=== PATIENT | female | born 1950 | race Caucasian/White ===

== ENCOUNTER → 2017-12-30 | Outpatient (CLI) | payer BC, MEDICARE ==
--- NOTE | 2017-12-30 15:39 | CTL ---
EXAMINATION TYPE: CT Low Dose Lung DATE OF EXAM ORDERED: 12/30/2017 HISTORY: Personal history of tobacco abuse. Lung cancer screening CT DLP: 1.[address] CTDI: 61.9 mGy Automated exposure control for dose reduction was used. SCREENING VISIT: Initial COMPARISON: None TECHNIQUE: Low dose computed tomography scan was performed through the chest at 1 mm thick sections a nd reconstructed images in the coronal plane at [address] DIAGNOSTIC QUALITY: Satisfactory FINDINGS: LUNG NODULES: There is an elongated triangular shaped flat pulmonary nodule that demonstrates irregular morphology on coronal imaging (series 10 image 23) and is also seen on axial series 4 image 100 and sagittal ser ies 8 image 58. This is solid in nature and measures 7 mm. There is a 4 mm left upper lobe pulmonary nodule seen peripherally on series 4 image 50 that is subso lid in nature. LUNGS: COPD: Severity: Mild Fibrosis: Severity: None Lymph nodes: Nonenlarged RIGHT PLEURAL SPACE: Effusion: None Calcification: None Thickening: None Pneumothorax: None LEFT PLEURAL SPACE: Effusion: None Calcification: None Thickening: None Pneumothorax: None HEART: Heart Size: Ascending thoracic aorta is minimally dilated measuring 4.0-4.1 cm. Heart is within mariia l limits of size. Coronary calcification: Moderate Pericardial effusion: None OTHER FINDINGS: Upper abdomen: Grossly unremarkable evaluation of the unenhanced portions of the abdominal viscera al though limited. Bony thorax: Multilevel moderate degenerative change of the thoracic spine is seen. There is a very m ild dextroscoliotic curvature of the thoracic spine that could be positional in nature. Supraclavicular region: No discrete adenopathy IMPRESSION: Findings corresponding to LUNG RADS 3-probably benign [id number] follow-up is arroyo ggested. There is an elongated 7 mm solid pulmonary nodule in the right upper lobe and additional sub centimeter left upper lobe pulmonary nodule. If there is interval growth at that time PET/CT would be recommended. FOLLOW UP CT CHEST RECOMMENDATION: Six-month low dose CT is recommended to evaluate stability of the bilateral pulmonary nodules measuring up to [address] LUNG RAD: Lung-Rad 3 Probably Benign
--- NOTE | 2018-01-07 10:55 | P.ARTDOP ---
Arterial Doppler LOWER EXTREMITY ARTERIAL DOPPLER: DATE OF SERVICE: 12/30/2017 Reason for study: Bilateral leg pain. Doppler waveforms: Multiphasic bilaterally throughout. Pulse volume recording: []. Pressure gradients: None. Ankle-brachial indices: Greater than 1 bilaterally. Toe pressures: [] on the right, [] on the left Impression: Normal study..
== END | disposition home or self-care (01) ==
LOC: RADUSWWP 14:15
PROVIDERS: ATTEND Family Medicine
DX: R91.1 Solitary pulmonary nodule (principal); F17.200 Nicotine dependence, unspecified, uncomplicated
CPT/HCPCS: 93922; G0297

== ENCOUNTER → 2018-03-25 | Outpatient (CLI) | payer MEDICARE ==
--- NOTE | 2018-03-25 14:36 | US ---
EXAMINATION TYPE: US venous doppler duplex LE RT DATE OF EXAM: 03/25/2018 2:19 PM COMPARISON: NONE CLINICAL HISTORY: Rt Lower leg I83.009 varicose veins. SIDE PERFORMED: Right TECHNIQUE: The lower extremity deep venous system is examined utilizing real time linear array sonog mariajose with graded compression, doppler sonography and color-flow sonography. VESSELS IMAGED: External Iliac Vein (EIV) Common Femoral Vein Deep Femoral Vein Greater Saphenous Vein * Femoral Vein Popliteal Vein Small Saphenous Vein * Proximal Calf Veins (* superficial vessels) Grayscale, color doppler, spectral doppler imaging performed of the deep veins of the right lower ext remity. There is normal flow, compressibility, vascular waveforms. Right Leg: Negative for DVT IMPRESSION: No sonographic evidence of deep venous thrombosis within the right lower extremity.
== END | disposition home or self-care (01) ==
LOC: RADUSWWP 13:54
PROVIDERS: ATTEND Family Medicine
DX: I83.009 Varicose veins of unspecified lower extremity with ulcer of unspecified site (principal)

== ENCOUNTER → 2018-08-06 | Outpatient (CLI) | payer MEDICARE ==
--- NOTE | 2018-08-07 06:07 | CT ---
EXAMINATION TYPE: CT chest wo con DATE OF EXAM: 08/06/2018 COMPARISON: Low-dose CT 12/30/2017 HISTORY: 68-year-old female lung nodules. Solitary lung nodule. TECHNIQUE: Contiguous axial scanning of the chest without IV contrast. Coronal and sagittal reconstru ctions performed. CT DLP: 167.7 mGycm Automated exposure control for dose reduction was used. FINDINGS: The heart is normal size without pericardial effusion. Coronary vessel calcifications are present. Ectatic upper ascending aorta at 3.6 cm. Mild atelectatic arch calcifications. Bovine configuration t o the aortic arch. Borderline ectatic mid and lower descending thoracic aorta measuring up to 2.6 cm. Mild emphysematous change in the upper lungs. -3 mm pulmonary nodule right upper lobe, axial image 15, unchanged. -8 x 3 x 7 mm elongated nodule lateral right midlung axial image 23 and coronal 38 is unchanged. -4 mm right middle lobe pulmonary nodule axial image 35 is unchanged. -Previously seen 3 mm left upper lobe pulmonary nodule is no longer demonstrated. No consolidation or pleural effusion. Visualized upper abdomen shows no gross anomaly. Bones: Accentuated midthoracic kyphosis with moderate degenerative disc disease particularly in the l ower thoracic spine. 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 Minimal superior endplate def ormity of T4 is unchanged. IMPRESSION: 1. AN 8 MM ELONGATED PULMONARY NODULE IN THE RIGHT MIDLUNG IS UNCHANGED FOR 7 MONTHS. AN ADDITIONAL O NE-YEAR FOLLOW-UP CT IS RECOMMENDED. ALTERNATIVELY, THE PATIENT CAN RETURN TO ANNUAL LOW-DOSE LUNG CA NCER SCREENING CT. 2. A COUPLE ADDITIONAL PULMONARY NODULES MEASURING UP TO 4 MM ARE ALSO UNCHANGED. ONE NODULE IS NO LO NGER SEEN. 3. COPD WITH MILD EMPHYSEMA.
== END ==
LOC: RADCTMAIN 16:07
PROVIDERS: ATTEND Family Medicine
DX: R91.1 Solitary pulmonary nodule (principal); J44.9 Chronic obstructive pulmonary disease, unspecified; J43.9 Emphysema, unspecified
CPT/HCPCS: 71250

== ENCOUNTER 2024-01-21 20:35 | Inpatient (IN) | payer MEDICARE ==
[~2024-01-21 20:35] MED LIST: HYDROmorphone 0.5 MG/0.5 ML SYRINGE ONE; HYDROmorphone 1 MG/ML 1 ML SYRINGE ONE; ONDANSETRON 4 MG/2 ML VIAL ONE; cefTRIAXone 2 GM VIAL ONE
[2024-01-21] MEDS ORDERED: HYDROmorphone 1 MG/ML 1 ML SYRINGE ONE (23:19)
[2024-01-22] MEDS ORDERED: cloNIDine HCL 0.1 MG TAB ONE (05:42)
[2024-01-22] MEDS ORDERED: PANTOPRAZOLE 40 MG TABLET PO ONE (05:42)
[2024-01-22] MEDS ORDERED: HYDROmorphone 0.5 MG/0.5 ML SYRINGE ONE ×4 (05:50→17:35)
[2024-01-22] MEDS ORDERED: LACTATED RINGERS 1,000 ML BAG ONE (07:00)
[2024-01-22] MEDS ORDERED: NEOSTIGMINE 1 MG/ML 10 ML VIAL ONE (07:08)
[2024-01-22] MEDS ORDERED: GLYCOPYRROLATE 0.2 MG/ML 2 ML VIAL ONE (07:08)
[2024-01-22] MEDS ORDERED: fentaNYL (PF) 50 MCG/ML 2 ML AMP ONE (07:08)
[2024-01-22] MEDS ORDERED: ROCURONIUM 10 MG/ML (5 ML VIAL) IV ONE (07:08)
[2024-01-22] MEDS ORDERED: PROPOFOL 10 MG/ML 20 ML VIAL IV ONE (07:08)
[2024-01-22] MEDS ORDERED: LIDOCAINE 1% INJ 10MG/ML (20 ML MDV) ONE (07:08)
[2024-01-22] MEDS ORDERED: SUCCINYLCHOLINE CHLORIDE 200 MG/10 ML VIAL IV ONE (07:08)
[2024-01-22] MEDS ORDERED: HEPARIN SODIUM,PORCINE 5,000 UNIT/ML 1 ML VIAL ONE ×3 (09:33→21:07)
[2024-01-22] MEDS ORDERED: NICOTINE 21MG/24HR PATCH TRANSDERM ONE (09:33)
[2024-01-22] MEDS ORDERED: cefTRIAXone 2 GM VIAL ONE (09:33)
[2024-01-22] MEDS ORDERED: HYDROmorphone 1 MG/ML 1 ML SYRINGE ONE ×2 (20:32→23:35)
[2024-01-22] MEDS ORDERED: VANCOMYCIN 1,000 MG VIAL ONE (23:59)
[2024-01-22] MEDS ORDERED: SODIUM CHLORIDE 0.9% 50 ML BAG ONE (23:59)
[2024-01-22] MEDS ORDERED: VANCOMYCIN 500 MG VIAL ONE (23:59)
[2024-01-22] MEDS ORDERED: SODIUM CHLORIDE 0.9% 250 ML BAG ONE (23:59)
[2024-01-23] MEDS ORDERED: HYDROmorphone 1 MG/ML 1 ML SYRINGE ONE ×3 (04:25→15:31)
[2024-01-23] MEDS ORDERED: HEPARIN SODIUM,PORCINE 5,000 UNIT/ML 1 ML VIAL ONE ×3 (05:30→22:27)
[2024-01-23] MEDS ORDERED: cefTRIAXone 2 GM VIAL ONE (08:03)
[2024-01-23] MEDS ORDERED: HYDROmorphone 0.5 MG/0.5 ML SYRINGE ONE (22:26)
[2024-01-23] MEDS ORDERED: SODIUM CHLORIDE 0.9% 250 ML BAG ONE (23:59)
[2024-01-23] MEDS ORDERED: VANCOMYCIN 1,000 MG VIAL ONE (23:59)
[2024-01-23] MEDS ORDERED: SODIUM CHLORIDE 0.9% 50 ML BAG ONE (23:59)
[2024-01-23] MEDS ORDERED: VANCOMYCIN 500 MG VIAL ONE (23:59)
[2024-01-23] MEDS ORDERED: DEXTROSE 5%-0.45% NACL 1,000 ML BAG IV ONE (23:59)
[2024-01-24] MEDS ORDERED: HYDROmorphone 1 MG/ML 1 ML SYRINGE ONE (03:15)
[2024-01-24] MEDS ORDERED: HEPARIN SODIUM,PORCINE 5,000 UNIT/ML 1 ML VIAL ONE ×3 (06:52→22:38)
[2024-01-24] MEDS ORDERED: cefTRIAXone 2 GM VIAL ONE (09:09)
[2024-01-24] MEDS ORDERED: HYDROmorphone 0.5 MG/0.5 ML SYRINGE ONE ×2 (09:09→13:22)
[2024-01-24] MEDS ORDERED: cloNIDine HCL 0.1 MG TAB ONE (22:38)
[2024-01-24] MEDS ORDERED: POTASSIUM CHLORIDE 100 ML ONE (23:01)
[2024-01-24] MEDS ORDERED: VANCOMYCIN 1,000 MG VIAL ONE (23:59)
[2024-01-24] MEDS ORDERED: DEXTROSE 5%-0.45% NACL 1,000 ML BAG IV ONE (23:59)
[2024-01-24] MEDS ORDERED: SODIUM CHLORIDE 0.9% 250 ML BAG ONE (23:59)
[2024-01-24] MEDS ORDERED: VANCOMYCIN 500 MG VIAL ONE (23:59)
[2024-01-24] MEDS ORDERED: SODIUM CHLORIDE 0.9% 50 ML BAG ONE (23:59)
[2024-01-25] MEDS ORDERED: POTASSIUM CHLORIDE 100 ML ONE ×3 (00:13→02:59)
[2024-01-25] MEDS ORDERED: HYDROmorphone 1 MG/ML 1 ML SYRINGE ONE (00:25)
[2024-01-25] MEDS ORDERED: MAGNESIUM SULFATE-D5W PMX 100 ML IVPB ONE ×2 (04:56→06:10)
[2024-01-25] MEDS ORDERED: HEPARIN SODIUM,PORCINE 5,000 UNIT/ML 1 ML VIAL ONE ×2 (06:10→21:11)
[2024-01-25] MEDS ORDERED: PANTOPRAZOLE 40 MG TABLET PO ONE (09:45)
[2024-01-25] MEDS ORDERED: cefTRIAXone 2 GM VIAL ONE (09:45)
[2024-01-25] MEDS ORDERED: NALOXONE 0.4 MG/ML 1 ML VIAL IVP PRN (13:31)
[2024-01-25] MEDS ORDERED: VANCOMYCIN 500 MG VIAL ONE (23:59)
[2024-01-25] MEDS ORDERED: SODIUM CHLORIDE 0.9% 50 ML BAG ONE (23:59)
[2024-01-25] MEDS ORDERED: VANCOMYCIN 1,000 MG VIAL ONE (23:59)
[2024-01-25] MEDS ORDERED: SODIUM CHLORIDE 0.9% 250 ML BAG ONE (23:59)
[2024-01-26] MEDS ORDERED: ONDANSETRON 4 MG/2 ML VIAL IVP PRN
[2024-01-26] MEDS ORDERED: ACETAMINOPHEN TAB 325 MG TAB PO PRN
[2024-01-26 04:37] LABS: Basophils % (A) 0 %; Eosinophils # (A) 0.5 k/uL (0-0.7); Eosinophils % (A) 7 %; HCT 32.3 % (34.0-46.0); HGB 10.6 gm/dL (11.4-16.0); Lymphocytes # (A) 1.3 k/uL (1.0-4.8); Lymphocytes % (A) 20 %; MCH 31.3 pg (25.0-35.0); MCHC 32.8 g/dL (31.0-37.0); MCV 95.3 fL (80.0-100.0); Mean Platelet Volume 11.7; Monocytes # (A) 0.5 k/uL (0-1.0); Monocytes % (A) 8 %; Neutrophils # (A) 4.2 k/uL (1.3-7.7); Neutrophils % (A) 64 %; Platelet Count 170 k/uL (150-450); RBC 3.39 m/uL (3.80-5.40); RDW 13.5 % (11.5-15.5); WBC 6.6 k/uL (3.8-10.6)
[2024-01-26 05:16] LABS: African American GFR (CKD) >90 (>60 ml/min/1.73 sqM); Anion Gap 4 mmol/L; Blood Urea Nitrogen 5 mg/dL (7-17); Calcium 8.5 mg/dL (8.4-10.2); Carbon Dioxide 22 mmol/L (22-30); Chloride 112 mmol/L (98-107); Glucose 86 mg/dL (74-99); Magnesium 1.8 mg/dL (1.6-2.3); Non-African American GFR(CKD) 83 (>60 ml/min/1.73 sqM); Potassium 3.3 mmol/L (3.5-5.1); Sodium 138 mmol/L (137-145)
[2024-01-26] MEDS: DEXTROSE 5%-0.45% NACL 1,000 ML IV SCH (05:25)
[2024-01-26] MEDS: HEPARIN SODIUM,PORCINE 5,000 UNIT/ML 1 ML VIAL SQ SCH (05:25)
[2024-01-26] MEDS: PANTOPRAZOLE 40 MG TABLET PO SCH (06:34)
--- NOTE | 2024-01-26 08:19 | P.PN ---
Subjective Progress Note Date: 01/26/24 Patient feels better. She has had flatus. On exam vital signs appear stable. Abdomen is soft. Patient will have her diet advanced to regular. Anticipate discharge home in next 48 hours. Objective - Vital Signs Vital signs: Vital Signs Temp 97.9 F 01/26/24 03:29 Pulse 64 01/26/24 03:29 Resp 14 01/26/24 03:29 BP 164/85 01/26/24 03:29 Pulse Ox 95 01/26/24 03:29 FiO2 Intake & Output 01/25/24 01/26/24 01/26/24 18:59 06:59 18:59 Weight 59.24 kg - Labs CBC & Chem 7: 01/26/24 03:20 01/26/24 03:20 Labs: Abnormal Lab Results - Last 24 Hours (Table) 01/26/24 01/26/24 Range/Units 03:20 03:20 RBC 3.39 L (3.80-5.40) m/uL Hgb 10.6 L (11.4-16.0) gm/dL Hct 32.3 L (34.0-46.0) % Potassium 3.3 L (3.5-5.1) mmol/L Chloride 112 H (98-107) mmol/L BUN 5 L (7-17) mg/dL
[2024-01-26] MEDS: NICOTINE 21MG/24HR PATCH TRANSDERM SCH (10:00)
[2024-01-26] MEDS: VANCOMYCIN 1,250 MG in SODIUM CHLORIDE 0.9% 250 ML IVPB SCH (10:15)
--- NOTE | 2024-01-26 11:04 | P.PN ---
Subjective Progress Note Date: 01/26/24 HPI: Patient presented to the hospital because of abdominal pain and sepsis. She was found to have small bowel obstruction. For this she underwent laparotomy with Dr. Ngo. Postoperatively she was noticed to be bradycardic with intermittent AV blocks and a 3.5-second pause for which cardiology was consulted. SUBJECTIVE: Patient is doing well from cardiovascular standpoint with no chest pain or s hortness of breath. No further bradycardic episodes. PHYSICAL EXAMINATION Lungs: Diminished breath sounds, mild crackles audible Heart: Regular rate and rhythm, S1-S2, no murmurs Abdomen: Surgical dressing in place, mild tenderness around the surgical dressing, mild distention, bowel sounds are audible, Extremities: No edema, Neuro: Alert, oriented, no focal neurological deficits. Detailed neuro exam was not performed. ASSESSMENT Intermittent second-degree AV block 3.5-second pause due to AV block on 01/23/2024, 2199 with underlying sinus mechanism. Bradycardia, currently resolved PLAN Patient bradycardia and pauses could be related to pain and increasing intra- abdominal pressure after laparotomy from small bowel obstruction. As her pain and intra-abdominal inflammation is getting better, patient has not had any further bradycardia AV node blocks or pauses overnight in last 24 hours of Holter monitoring. Continue telemetry monitoring. As needed hydralazine 25 mg 4 times daily if SBP is more than 160 mmHg Alistair Meeks MD, FACC, RPVI Thank you for allowing [facility] to participate in this patient's care. Please contact us in case of any followup questions. Objective - Vital Signs Vital signs: Vital Signs Temp 98.1 F 01/26/24 10:00 Pulse 72 01/26/24 10:00 Resp 18 01/26/24 10:00 BP 177/90 01/26/24 10:00 Pulse Ox 97 01/26/24 10:00 FiO2 Intake & Output 01/25/24 01/26/24 01/26/24 18:59 06:59 18:59 Intake Total 10 Balance 10 Weight 59.24 kg Intake: IV 10 Invasive Line 1 10 Other: # Voids 2 - Labs CBC & Chem 7: 01/26/24 03:20 01/26/24 03:20 Labs: Abnormal Lab Results - Last 24 Hours (Table) 08/25/24 08/25/24 Range/Units 03:20 03:20 RBC 3.39 L (3.80-5.40) m/uL Hgb 10.6 L (11.4-16.0) gm/dL Hct 32.3 L (34.0-46.0) % Potassium 3.3 L (3.5-5.1) mmol/L Chloride 112 H (98-107) mmol/L BUN 5 L (7-17) mg/dL
--- NOTE | 2024-01-26 12:23 | P.PN ---
Subjective Progress Note Date: 01/26/24 Hospital Course: 73-year-old female presented with ischemic bowel secondary to internal hernia status post small bowel resection. Course was complicated by few sinus pauses, cardiology was consulted. Currently bowel function progressing well. Subjective: Patient seen and examined at bedside. No acute events overnight. Claims that she has some abdominal pain with eating. Denies any nausea or vomiting. Having some bowel movements. Able to tolerate oral intake. Denies any episodes of passing out. Pertinent positives and negatives as discussed above, a complete review of systems was performed and all other systems are negative. Vitals Signs Reviewed. General: Nontoxic, no distress, appears at stated age Derm: Warm, dry, incision clean, dry, intact, right lower extremity anterior leg ulceration with clean base, no purulence, almost 3 cm x 3 cm. Head: Atraumatic, normocephalic, symmetric Eyes: EOMI, no lid lag, anicteric sclera Mouth: No lip lesion, mucus membranes moist Cardiovascular: S1S2 reg, no murmur Lungs: CTA bilateral, no rhonchi, no rales, no accessory muscle use Abdominal: Soft, slight tenderness to palpation, no guarding, no appreciable organomegaly Ext: No gross muscle atrophy, no edema, no contractures Neuro: CN II-XI grossly intact, no focal neuro deficits Psych: Alert, oriented, appropriate affect Data Reviewed Today: Pertinent Labs: WBC 6.6, hemoglobin 10.6, platelet 170, potassium 3.3, creatinine 0.72, magnesium 1.8 Imaging: No new imaging Assessment and Plan: Active: Ischemic bowel secondary internal hernia status post small bowel resection -Surgery following -On regular diet -IV fluids discontinued -Oral Tylenol, IV Dilaudid for pain control -Pantoprazole 40 daily Right lower extremity ulcer -No associated cellulitis -Was seen by vascular surgery and wound care -Continue wound care -Likely needs outpatient follow-up with wound care -Discontinue IV vancomycin -Okay to continue IV ceftriaxone 2 g every 24 hours Nicotine dependence -Nicotine patch 21 mg daily Sinus pauses, resolved Hypertension -Cardiology following, note reviewed, started on hydralazine 25 4 times daily -Continue telemetry monitoring Hypokalemia -40 mill equivalent oral potassium given DVT ppx: Subcu heparin Code status: Full code Anticipated discharge place: Pending clinical course Anticipated discharge time: Pending clinical course Objective - Vital Signs Vital signs: Vital Signs Temp 98.1 F 01/26/24 10:00 Pulse 72 01/26/24 10:00 Resp 18 01/26/24 10:00 BP 177/90 01/26/24 10:00 Pulse Ox 97 01/26/24 10:00 FiO2 Intake & Output 01/25/24 01/26/24 01/26/24 18:59 06:59 18:59 Intake Total 10 Balance 10 Weight 59.24 kg Intake: IV 10 Invasive Line 1 10 Other: # Voids 2 - Labs CBC & Chem 7: 01/26/24 03:20 01/26/24 03:20 Labs: Abnormal Lab Results - Last 24 Hours (Table) 01/26/24 01/26/24 Range/Units 03:20 03:20 RBC 3.39 L (3.80-5.40) m/uL Hgb 10.6 L (11.4-16.0) gm/dL Hct 32.3 L (34.0-46.0) % Potassium 3.3 L (3.5-5.1) mmol/L Chloride 112 H (98-107) mmol/L BUN 5 L (7-17) mg/dL
[2024-01-26] MEDS: POTASSIUM CHLORIDE ER 20 MEQ TAB.ER PO STA (12:47)
[2024-01-26] MEDS: hydrALAZINE HCL 25 MG TAB PO SCH (12:47)
[2024-01-26] MEDS: HYDROmorphone 0.5 MG/0.5 ML SYRINGE IVP PRN (12:47)
[2024-01-26] MEDS: PETROLAT,WHITE/LAN/8-HYDROXYQU 227 GM OINT TOPICAL SCH (18:03)
[2024-01-27] MEDS: LABETALOL 200 MG TAB PO STA (04:51)
[2024-01-27] MEDS ORDERED: VANCOMYCIN TROUGH DUE 1 EACH MISC MISCELLANE ONE (08:00)
[2024-01-27 08:14] LABS: Basophils % (A) 0 %; Eosinophils # (A) 0.4 k/uL (0-0.7); Eosinophils % (A) 5 %; HCT 31.2 % (34.0-46.0); HGB 10.4 gm/dL (11.4-16.0); Lymphocytes # (A) 1.2 k/uL (1.0-4.8); Lymphocytes % (A) 14 %; MCH 32.3 pg (25.0-35.0); MCHC 33.3 g/dL (31.0-37.0); MCV 97.2 fL (80.0-100.0); Monocytes # (A) 0.6 k/uL (0-1.0); Monocytes % (A) 7 %; Neutrophils # (A) 6.1 k/uL (1.3-7.7); Neutrophils % (A) 71 %; Platelet Count 168 k/uL (150-450); RBC 3.21 m/uL (3.80-5.40); RDW 14.2 % (11.5-15.5); WBC 8.6 k/uL (3.8-10.6)
[2024-01-27 08:41] LABS: African American GFR (CKD) 46 (>60 ml/min/1.73 sqM); Anion Gap 3 mmol/L; Blood Urea Nitrogen 12 mg/dL (7-17); Calcium 9.2 mg/dL (8.4-10.2); Carbon Dioxide 22 mmol/L (22-30); Chloride 114 mmol/L (98-107); Glucose 120 mg/dL (74-99); Magnesium 1.6 mg/dL (1.6-2.3); Non-African American GFR(CKD) 40 (>60 ml/min/1.73 sqM); Potassium 3.4 mmol/L (3.5-5.1); Sodium 139 mmol/L (137-145)
[2024-01-27] MEDS: HYDROmorphone 1 MG/ML 1 ML SYRINGE IVP PRN (09:15)
[2024-01-27] MEDS: POTASSIUM CHLORIDE ER 20 MEQ TAB.ER PO STA (09:18)
[2024-01-27] MEDS: HYDROmorphone 1 MG/ML 1 ML SYRINGE ONE (11:39)
[2024-01-27] MEDS: POTASSIUM CHLORIDE ER 20 MEQ TAB.ER PO ONE ×4 (11:39→11:40)
[2024-01-27] MEDS: PANTOPRAZOLE 40 MG TABLET PO ONE (11:39)
[2024-01-27] MEDS: HYDROmorphone 0.5 MG/0.5 ML SYRINGE ONE ×3 (11:39→11:40)
--- NOTE | 2024-01-27 11:55 | P.PN ---
Subjective Progress Note Date: 01/27/24 CHIEF COMPLAINT: SBO HISTORY OF PRESENT ILLNESS: Patient complaining of abdominal pain and leg pain. Requiring IV pain medication. She is having bowel movements. Denies any nausea or vomiting. She is followed by cardiology for bradycardia and cardiac pauses. Patient seen and examined with Dr. Pritchett PHYSICAL EXAM: VITAL SIGNS: Reviewed. GENERAL: Well-developed in no acute distress. ABDOMEN: Soft. NEUROLOGIC: Alert and oriented. Cranial nerves II through XII grossly intact. ASSESSMENT: 1. Small bowel obstruction secondary to internal hernia status post exploratory laparotomy and lysis of adhesions PLAN: -[place] added for oral pain medication -Continue regular diet -Increase activity level -him manager arranging home care at discharge. Patient not a candidate for ECF placement. -Anticipate possible discharge tomorrow from surgical standpoint. Physician Roll Operator note has been reviewed by physician. Signing provider agrees with the documented findings, assessment, and plan of care. Objective - Vital Signs Vital signs: Vital Signs Temp 98.1 F 01/27/24 09:05 Pulse 72 01/27/24 09:05 Resp 17 01/27/24 09:05 BP 147/74 01/27/24 09:05 Pulse Ox 98 01/27/24 09:05 FiO2 Intake & Output 01/26/24 01/27/24 01/27/24 18:59 06:59 18:59 Intake Total 20 Output Total 1050 Balance 20 -1050 Weight 64.4 kg Intake: IV 20 Invasive Line 1 10 Invasive Line 2 10 Output: Urine 1050 Other: Voiding Method Toilet Toilet Toilet Bedside Commode Bedside Commode Bedside Commode # Voids 7 1 # Bowel Movements 2 - Labs CBC & Chem 7: 01/27/24 07:36 01/27/24 07:36 Labs: Abnormal Lab Results - Last 24 Hours (Table) 01/27/24 01/27/24 Range/Units 07:36 07:36 RBC 3.21 L (3.80-5.40) m/uL Hgb 10.4 L (11.4-16.0) gm/dL Hct 31.2 L (34.0-46.0) % Potassium 3.4 L (3.5-5.1) mmol/L Chloride 114 H (98-107) mmol/L Creatinine 1.31 H (0.52-1.04) mg/dL Glucose 120 H (74-99) mg/dL
--- NOTE | 2024-01-27 13:45 | P.PN ---
Subjective Progress Note Date: 01/27/24 HPI: Patient presented to the hospital because of abdominal pain and sepsis. She was found to have small bowel obstruction. For this she underwent laparotomy with Dr. Anderson. Postoperatively she was noticed to be bradycardic with intermittent AV blocks and a 3.5-second pause for which cardiology was consulted. SUBJECTIVE: Patient is doing well from cardiovascular standpoint with no chest pain or sh ortness of breath. No further bradycardic episodes. 01/26 Patient has had no more episodes of bradycardia or AV blocks. She has been in a sinus rhythm. Heart rate is in the 70s, blood pressure 151/61, pulse ox 97% on room air. Repeat blood work reveals hemoglobin 10.4. Potassium 3.4, creatinine 1.31. PHYSICAL EXAMINATION Lungs: Diminished breath sounds, mild crackles audible Heart: Regular rate and rhythm, S1-S2, no murmurs Abdomen: Surgical dressing in place, mild tenderness around the surgical dressing, bowel sounds are audible, Extremities: No edema, Neuro: Alert, oriented, no focal neurological deficits. Detailed neuro exam was not performed. ASSESSMENT Intermittent second-degree AV block 3.5-second pause due to AV block on 01/23/2024, 2199 with underlying sinus mechanism. Bradycardia, currently resolved PLAN Patient bradycardia and pauses could be related to pain and increasing intra- abdominal pressure after laparotomy from small bowel obstruction. As her pain and intra-abdominal inflammation is getting better, patient has not had any further bradycardia AV node blocks or pauses over the past 48 hours. Cardiology will sign off and follow on an as-needed basis. Patient to follow-up with Dr. Meeks in 1 to 2 weeks following discharge from the hospital. Nurse practitioner note has been reviewed, I agree with documented findings and plan of care. Patient was seen and examined. Objective - Vital Signs Vital signs: Vital Signs Temp 98.1 F 01/27/24 09:05 Pulse 72 01/27/24 09:05 Resp 17 01/27/24 09:05 BP 147/74 01/27/24 09:05 Pulse Ox 98 01/27/24 09:05 FiO2 Intake & Output 01/26/24 01/27/24 01/27/24 18:59 06:59 18:59 Intake Total 20 Output Total 1050 Balance 20 -1050 Weight 64.4 kg Intake: IV 20 Invasive Line 1 10 Invasive Line 2 10 Output: Urine 1050 Other: Voiding Method Toilet Toilet Toilet Bedside Commode Bedside Commode Bedside Commode # Voids 7 1 # Bowel Movements 2 - Labs CBC & Chem 7: 01/27/24 07:36 01/27/24 07:36 Labs: Abnormal Lab Results - Last 24 Hours (Table) 01/27/24 01/27/24 Range/Units 07:36 07:36 RBC 3.21 L (3.80-5.40) m/uL Hgb 10.4 L (11.4-16.0) gm/dL Hct 31.2 L (34.0-46.0) % Potassium 3.4 L (3.5-5.1) mmol/L Chloride 114 H (98-107) mmol/L Creatinine 1.31 H (0.52-1.04) mg/dL Glucose 120 H (74-99) mg/dL
--- NOTE | 2024-01-27 14:12 | P.PN ---
Subjective Progress Note Date: 01/27/24 Hospital Course: 73-year-old female presented with ischemic bowel secondary to internal hernia status post small bowel resection. Course was complicated by few sinus pauses, cardiology was consulted. Currently bowel function progressing well. Patient has a new SANDOR. Subjective: Patient seen and examined at bedside. No acute events overnight. Claims that she has some abdominal pain with eating. Denies any nausea or vomiting. Having some bowel movements. Able to tolerate oral intake. Denies any episodes of passing out. Making adequate urine Pertinent positives and negatives as discussed above, a complete review of systems was performed and all other systems are negative. Vitals Signs Reviewed. General: Nontoxic, no distress, appears at stated age Derm: Warm, dry, incision clean, dry, intact, right lower extremity anterior leg ulceration with clean base, no purulence, almost 3 cm x 3 cm. Head: Atraumatic, normocephalic, symmetric Eyes: EOMI, no lid lag, anicteric sclera Mouth: No lip lesion, mucus membranes moist Cardiovascular: S1S2 reg, no murmur Lungs: CTA bilateral, no rhonchi, no rales, no accessory muscle use Abdominal: Soft, slight tenderness to palpation, no guarding, no appreciable organomegaly Ext: No gross muscle atrophy, no edema, no contractures Neuro: CN II-XI grossly intact, no focal neuro deficits Psych: Alert, oriented, appropriate affect Data Reviewed Today: Pertinent Labs: WBC 8.6, hemoglobin 10.4, potassium 3.4, creatinine 1.31, magnesium 1.6 Imaging: No new imaging Assessment and Plan: Active: Nonoliguric SANDOR -Renal ultrasound pending -Will restart IV fluids at 100 cc an hour LR -Measure I's and O's Ischemic bowel secondary internal hernia status post small bowel resection -Discussed management with surgery, continue on regular diet -Oral Tylenol, IV Dilaudid for pain control , Monitor for sedation -Pantoprazole 40 oral daily Right lower extremity ulcer -No surrounding cellulitis at the moment -Was seen by vascular surgery and wound care -Continue wound care -Likely needs outpatient follow-up with wound care -Was previously on IV vancomycin, which has now been discontinued -Okay to continue IV ceftriaxone 2 g every 24 hours Nicotine dependence -Nicotine patch 21 mg daily Sinus pauses, resolved Hypertension -Cardiology note reviewed, continue hydralazine 25 4 times daily, signed off -Continue telemetry monitoring Hypokalemia -40 mill equivalent oral potassium given Hypomagnesemia -2 g IV magnesium sulfate given DVT ppx: Subcu heparin Code status: Full code Anticipated discharge place: Pending clinical course Anticipated discharge time: Pending clinical course Objective - Vital Signs Vital signs: Vital Signs Temp 98.1 F 01/27/24 09:05 Pulse 71 01/27/24 11:30 Resp 17 01/27/24 11:30 BP 151/61 01/27/24 11:30 Pulse Ox 97 01/27/24 11:30 FiO2 Intake & Output 01/26/24 01/27/24 01/27/24 18:59 06:59 18:59 Intake Total 20 118 Output Total 1050 Balance 20 -1050 118 Weight 64.4 kg Intake: IV 20 Invasive Line 1 10 Invasive Line 2 10 Oral 118 Output: Urine 1050 Other: Voiding Method Toilet Toilet Toilet Bedside Commode Bedside Commode Bedside Commode # Voids 7 1 # Bowel Movements 2 - Labs CBC & Chem 7: 01/27/24 07:36 01/27/24 07:36 Labs: Abnormal Lab Results - Last 24 Hours (Table) 01/27/24 01/27/24 Range/Units 07:36 07:36 RBC 3.21 L (3.80-5.40) m/uL Hgb 10.4 L (11.4-16.0) gm/dL Hct 31.2 L (34.0-46.0) % Potassium 3.4 L (3.5-5.1) mmol/L Chloride 114 H (98-107) mmol/L Creatinine 1.31 H (0.52-1.04) mg/dL Glucose 120 H (74-99) mg/dL
[2024-01-27] MEDS: MAGNESIUM SULFATE-D5W PMX 1 GM in DEXTROSE/WATER 1 100ML.BAG IVPB SCH (14:25)
[2024-01-27] MEDS: LACTATED RINGERS 1,000 ML IV SCH (14:26)
--- NOTE | 2024-01-27 15:28 | US ---
EXAMINATION TYPE: US kidneys/renal and bladder DATE OF EXAM: 01/27/2024 COMPARISON: NONE CLINICAL INDICATION: Female, 73 years old with history of sandor; SANDOR. Recent bowel surgery EXAM MEASUREMENTS: Right Kidney: 10.0 x 4.2 x 4.4 cm Left Kidney: 10.0 x 4.7 x 4.4 cm Right Kidney: prominent collecting system , no masses or calculi. Left Kidney: no evidence of hydronephrosis no evidence for calculi. Bladder: not visualized Bilateral Jets seen: noNo nephrolithiasis is seen. No masses are identified. The urinary bladder is anechoic. Bilateral ureteral jets are seen. IMPRESSION: 1. Dilation of the right renal collecting system. 2. No evidence for left obstructive uropathy.
[2024-01-27] MEDS: HYDROcodone/APAP 5-325MG 1 EACH TAB PO PRN (17:57)
[2024-01-28 09:56] LABS: Basophils % (A) 0 %; Eosinophils # (A) 0.5 k/uL (0-0.7); Eosinophils % (A) 6 %; HCT 34.9 % (34.0-46.0); HGB 11.5 gm/dL (11.4-16.0); Hypochromasia Slight; Lymphocytes # (A) 1.3 k/uL (1.0-4.8); Lymphocytes % (A) 13 %; MCH 32.2 pg (25.0-35.0); MCHC 33.1 g/dL (31.0-37.0); MCV 97.4 fL (80.0-100.0); Mean Platelet Volume 11.6; Monocytes # (A) 0.6 k/uL (0-1.0); Monocytes % (A) 6 %; Neutrophils # (A) 7.2 k/uL (1.3-7.7); Neutrophils % (A) 73 %; Platelet Count 211 k/uL (150-450); RBC 3.58 m/uL (3.80-5.40); RDW 13.9 % (11.5-15.5); WBC 9.8 k/uL (3.8-10.6)
[2024-01-28 10:07] LABS: ALT 25 U/L (4-34); AST 37 U/L (14-36); African American GFR (CKD) 42 (>60 ml/min/1.73 sqM); Albumin 3.4 g/dL (3.5-5.0); Alkaline Phosphatase 68 U/L (38-126); Anion Gap 6 mmol/L; Blood Urea Nitrogen 16 mg/dL (7-17); Calcium 9.4 mg/dL (8.4-10.2); Carbon Dioxide 23 mmol/L (22-30); Chloride 112 mmol/L (98-107); Glucose 82 mg/dL (74-99); Magnesium 1.9 mg/dL (1.6-2.3); Non-African American GFR(CKD) 36 (>60 ml/min/1.73 sqM); Sodium 141 mmol/L (137-145); Total Bilirubin 0.7 mg/dL (0.2-1.3); Total Protein 6.1 g/dL (6.3-8.2)
--- NOTE | 2024-01-28 11:10 | P.PN ---
Subjective Progress Note Date: 01/28/24 CHIEF COMPLAINT: SBO HISTORY OF PRESENT ILLNESS: Patient is up and standing. She is tolerating diet. She is having bowel movements. She is ambulating. Her pain is controlled. She does have incisional pain with movement. Denies any nausea or vomiting. Afebrile. WBC 9.8 Hgb 11.5 platelets 211 sodium 141 potassium 4.0 Cr is up 1.42. Medicine service stopped the vanco. PHYSICAL EXAM: VITAL SIGNS: Reviewed. GENERAL: Well-developed in no acute distress. ABDOMEN: Soft. Nondistended. Incisional dressing clean dry and intact NEUROLOGIC: Alert and oriented. Cranial nerves II through XII grossly intact. ASSESSMENT: 1. Small bowel obstruction secondary to internal hernia status post exploratory laparotomy and small bowel resection PLAN: -Patient can be discharged from surgical standpoint when medically cleared -Continue pain management -Continue regular diet -Increase activity level Physician Robotic Machine Operator note has been reviewed by physician. Signing provider agrees with the documented findings, assessment, and plan of care. Objective - Vital Signs Vital signs: Vital Signs Temp 98.1 F 01/28/24 08:29 Pulse 78 01/28/24 08:29 Resp 17 01/28/24 08:29 BP 162/83 01/28/24 08:29 Pulse Ox 100 01/28/24 08:29 FiO2 Intake & Output 01/27/24 01/28/24 01/28/24 18:59 06:59 18:59 Intake Total 118 300 Balance 118 300 Weight 65.3 kg Intake: Intake, IV Titration 300 Amount Lactated Ringers 1,000 ml 300 @ 100 mls/hr IV .Q10H [facility] Rx#:[id number] Oral 118 Other: Voiding Method Toilet Toilet Toilet Bedside Commode # Voids 3 - Labs CBC & Chem 7: 01/28/24 08:57 01/28/24 08:57 Labs: Abnormal Lab Results - Last 24 Hours (Table) 01/28/24 01/28/24 Range/Units 08:57 08:57 RBC 3.58 L (3.80-5.40) m/uL Chloride 112 H (98-107) mmol/L Creatinine 1.42 H (0.52-1.04) mg/dL AST 37 H (14-36) U/L Total Protein 6.1 L (6.3-8.2) g/dL Albumin 3.4 L (3.5-5.0) g/dL
[2024-01-28 15:24] VITALS: BMI 26.3
--- NOTE | 2024-01-28 17:46 | P.PN ---
Subjective Progress Note Date: 01/28/24 Principal diagnosis: Hospital Course: 73-year-old female presented with ischemic bowel secondary to internal hernia status post exploratory laparotomy, small bowel resection, partial omentectomy. Currently bowel function is progressing. Patient has a new SANDOR Subjective: Patient seen at bedside. No acute events overnight. Pertinent positives and negatives discussed above, a complete review of systems was preformed and all the other systems were negative. Vitals Signs Reviewed. General: non toxic, no distress, appears at stated age, normal weight Derm: no unusual rashes/lesions, warm Head: atraumatic, normocephalic, symmetric Eyes: EOMI, no lid lag, anicteric sclera, pupils equal round reactive to light ENT: Nose and ears atraumatic Neck: No cervical lymphadenopathy, trachea midline, supple Mouth: no lip lesion, mucus membranes moist Cardiovascular: S1S2 reg, no murmur, positive dorsalis pedis pulse bilateral, no edema Lungs: Decreased air entry bilaterally, no rhonchi, no rales, no accessory muscle use Abdominal: soft, nontender to palpation, no guarding Ext: muscle strength 5 out of 5 in all 4 extremities grossly, no gross muscle atrophy, no contractures, Neuro: CN II-XI grossly intact, no gross focal neuro deficits Psych: Alert, oriented, appropriate affect Data Reviewed Today: Patient Labs: WBCs 9.8, hemoglobin 11.5, platelets 211, sodium 141, potassium 4, chloride 112, bicarb 23, BUN 16, creatinine 1.42 Imaging: Ultrasound of kidneys and bladder showed dilation of the right renal collecting system and no evidence for left obstructive uropathy Assessment and Plan: Nonoliguric SANDOR -Renal ultrasound as reviewed above -Will restart IV fluids at 100 cc an hour LR -Measure I's and O's -Follow-up urinalysis, urine sodium, urine creatinine, FENA -repeat BMP, Mg tomorrow AM Ischemic bowel secondary internal hernia status post small bowel resection -Discussed management with surgery, continue on regular diet -Oral Tylenol, IV Dilaudid for pain control , Monitor for sedation -Pantoprazole 40 oral daily Chronic venous stasis bilaterally with right lower extremity ulcer -No surrounding cellulitis at the moment -Was seen by vascular surgery and wound care -Continue wound care -Likely needs outpatient follow-up with wound care -Was previously on IV vancomycin, which has now been discontinued -Okay to continue IV ceftriaxone 2 g every 24 hours Nicotine dependence -Nicotine patch 21 mg daily Sinus pauses, resolved Hypertension -Cardiology note reviewed, continue hydralazine 25 4 times daily, signed off -Adding amlodipine 10mg daily -Continue telemetry monitoring Hypokalemia resolved Hypomagnesemia resolved F LR at 100 cc/h E repleted as needed N regular diet A independently DVT ppx: Heparin 5000 units subcu every 8 hours Code Status: Full Anticipated discharge place: Home Anticipated discharge time: Pending clinical course I saw and evaluated the patient during the adams and critical portions of this encounter, and discussed the case in detail with the resident author of this note, I agree with the Assessment and Plan, and my changes, if any, are highlighted in blue. Objective - Vital Signs Vital signs: Vital Signs Temp 98.1 F 01/28/24 08:29 Pulse 70 01/28/24 16:02 Resp 15 01/28/24 16:02 BP 164/84 01/28/24 16:02 Pulse Ox 100 01/28/24 16:02 FiO2 Intake & Output 01/27/24 01/28/24 01/28/24 18:59 06:59 18:59 Intake Total 118 300 Balance 118 300 Weight 65.3 kg 65.3 kg Intake: Intake, IV Titration 300 Amount Lactated Ringers 1,000 ml 300 @ 100 mls/hr IV .Q10H [facility] Rx#:[id number] Oral 118 Other: Voiding Method Toilet Toilet Toilet Bedside Commode # Voids 3 - Labs CBC & Chem 7: 01/28/24 08:57 01/28/24 08:57 Labs: Abnormal Lab Results - Last 24 Hours (Table) 01/28/24 01/28/24 Range/Units 08:57 08:57 RBC 3.58 L (3.80-5.40) m/uL Chloride 112 H (98-107) mmol/L Creatinine 1.42 H (0.52-1.04) mg/dL AST 37 H (14-36) U/L Total Protein 6.1 L (6.3-8.2) g/dL Albumin 3.4 L (3.5-5.0) g/dL
[2024-01-28] MEDS: amLODIPine 10 MG TAB PO SCH (18:14)
[2024-01-28 19:10] LABS: Appearance,Urine Clear (Clear); Bilirubin,Urine Negative (Negative); Blood,Urine Negative (Negative); Color,Urine Colorless; Glucose,Urine (UA) Negative (Negative); Ketones,Urine Negative (Negative); Leukocyte Esterase,Urine Negative (Negative); Nitrite,Urine Negative (Negative); PH, Urine 6.5 (5.0-8.0); Protein,Urine Negative (Negative); Specific Gravity,Urine 1.008 (1.001-1.035); Urobilinogen,Urine <2.0 mg/dL (<2.0)
[2024-01-29 08:42] LABS: African American GFR (CKD) 40 (>60 ml/min/1.73 sqM); Anion Gap 6 mmol/L; Blood Urea Nitrogen 16 mg/dL (7-17); Calcium 9.3 mg/dL (8.4-10.2); Carbon Dioxide 25 mmol/L (22-30); Chloride 108 mmol/L (98-107); Glucose 82 mg/dL (74-99); Magnesium 1.5 mg/dL (1.6-2.3); Non-African American GFR(CKD) 34 (>60 ml/min/1.73 sqM); Potassium 3.7 mmol/L (3.5-5.1); Sodium 139 mmol/L (137-145)
--- NOTE | 2024-01-29 11:31 | CT ---
EXAMINATION TYPE: CT abdomen pelvis wo con DATE OF EXAM: 01/29/2024 HISTORY: screening for ureteral stricture CT DLP: 389 mGycm. Automated Exposure Control for Dose Reduction was Utilized. TECHNIQUE: CT scan of the abdomen and pelvis is performed without oral or IV contrast. COMPARISON: FINDINGS: Within the limitations of a non-contrast study, the following observations are made. LUNG BASES: Emphysematous changes with basilar atelectasis. The heart is enlarged. Coronary artery ca lcifications.. LIVER/GB: Cholelithiasis.. PANCREAS: No significant abnormality is seen. SPLEEN: No significant abnormality is seen. ADRENALS: Nonspecific thickening or nodularity in the left adrenal gland. Likely on the basis of hype rplasia or benign adenoma. KIDNEYS: Mild hydronephrosis on the right. No evidence of renal or ureteral calculus. Indeterminate s ubcentimeter right renal lesion too small to characterize by noncontrast technique.. BOWEL: Bowel gas pattern nonspecific with no evidence of previous surgery. GENITAL ORGANS: No gross abnormality seen. LYMPH NODES: No greater than 1cm abdominal or pelvic lymph nodes are appreciated. OSSEOUS STRUCTURES: Altered level severe degenerative disc disease. Bilateral hip and SI joint arthro orly. OTHER: Bladder nondistended and limited. Moderate atherosclerotic change aorta. No aneurysm. Subcutan eous anasarca with small foci of air likely iatrogenic. IMPRESSION: 1. Mild right hydronephrosis. No obstructing calculus identified. Indeterminate subcentimeter right r enal lesion incompletely evaluated by noncontrast technique. 2. Cholelithiasis. 3 anasarca..
--- NOTE | 2024-01-29 11:56 | P.PN ---
Subjective Principal diagnosis: Hospital Course: 73-year-old female presented with ischemic bowel secondary to internal hernia status post exploratory laparotomy, small bowel resection, partial omentectomy. Currently bowel function is progressing. Patient has a new SANDOR Subjective: Patient seen at bedside. No acute events overnight. Patient states she still having some abdominal pain and pain in her legs Pertinent positives and negatives discussed above, a complete review of systems was preformed and all the other systems were negative. Vitals Signs Reviewed. General: non toxic, no distress, appears at stated age, normal weight lying comfortably in bed Derm: no unusual rashes/lesions, warm Head: atraumatic, normocephalic, symmetric Eyes: EOMI, no lid lag, anicteric sclera, pupils equal round reactive to light ENT: Nose and ears atraumatic Neck: No cervical lymphadenopathy, trachea midline, supple Mouth: no lip lesion, mucus membranes moist Cardiovascular: S1S2 reg, no murmur, positive dorsalis pedis pulse bilateral, no edema Lungs: Decreased air entry bilaterally, no rhonchi, no rales, no accessory muscle use Abdominal: soft, nontender to palpation, no guarding Ext: muscle strength 5 out of 5 in all 4 extremities grossly, no gross muscle atrophy, no contractures, chronic venous stasis bilaterally with chronic ulcer in the right leg Neuro: CN II-XI grossly intact, no gross focal neuro deficits Psych: Alert, oriented, appropriate affect Data Reviewed Today: Patient Labs: Sodium 139 potassium 3.7 chloride 108 bicarb 25 BUN 16 creatinine 1.48. Urine creatinine 34.9, urine sodium 134, calculated FeNa was 3.9% Imaging: CT abdomen pelvis showed mild right hydronephrosis without obstructing calculus, right renal lesion, cholelithiasis, and anasarca Assessment and Plan: Nonoliguric SANDOR -Renal ultrasound showed no obstruction -Will restart IV fluids at 100 cc an hour LR -Measure I's and O's -Continue to monitor renal function with daily BMPs CT abdomen pelvis without contrast done Ischemic bowel secondary internal hernia status post small bowel resection -Discussed management with surgery, continue on regular diet -Oral Tylenol, IV Dilaudid for pain control , Monitor for sedation -Pantoprazole 40 oral daily Chronic venous stasis bilaterally with right lower extremity ulcer -No surrounding cellulitis at the moment -Was seen by vascular surgery and wound care -Continue wound care -Likely needs outpatient follow-up with wound care -Was previously on IV vancomycin, which has now been discontinued -Okay to continue IV ceftriaxone 2 g every 24 hours Nicotine dependence -Nicotine patch 21 mg daily Sinus pauses, resolved Hypertension -Cardiology note reviewed, continue hydralazine 25 4 times daily, signed off -Added amlodipine 10mg -Continue telemetry monitoring Hypokalemia resolved Hypomagnesemia resolved F LR at 100 cc/h E repleted as needed N regular diet A independently DVT ppx: Heparin 5000 units subcu every 8 hours Code Status: Full Anticipated discharge place: Home Anticipated discharge time: Pending clinical course I saw and evaluated the patient during the adams and critical portions of this encounter, and discussed the case in detail with the resident author of this note, I agree with the Assessment and Plan, and my changes, if any, are highlighted in blue. Objective - Vital Signs Vital signs: Vital Signs Temp 98.4 F 01/29/24 04:25 Pulse 73 01/29/24 04:25 Resp 16 01/29/24 04:25 BP 153/82 01/29/24 04:25 Pulse Ox 97 01/29/24 04:25 FiO2 Intake & Output 01/28/24 01/29/24 01/29/24 18:59 06:59 18:59 Weight 65.3 kg 64.5 kg Other: Voiding Method Toilet Toilet - Labs CBC & Chem 7: 01/28/24 08:57 01/29/24 08:11 Labs: Abnormal Lab Results - Last 24 Hours (Table) 01/28/24 01/28/24 Range/Units 08:57 08:57 RBC 3.58 L (3.80-5.40) m/uL Chloride 112 H (98-107) mmol/L Creatinine 1.42 H (0.52-1.04) mg/dL AST 37 H (14-36) U/L Total Protein 6.1 L (6.3-8.2) g/dL Albumin 3.4 L (3.5-5.0) g/dL
--- NOTE | 2024-01-29 12:49 | P.PN ---
Subjective Progress Note Date: 01/29/24 CHIEF COMPLAINT: SBO HISTORY OF PRESENT ILLNESS: Patient reports pain is controlled. Just some incisional pain with movement. She is having bowel movements. Tolerating diet. Medicine service is working up for acute kidney injury. They ordered a CT scan abdomen and pelvis for evaluation of ureteral stricture screening. Did report mild right hydronephrosis no obstructing calculus identified. And a indeterminate subcentimeter right renal lesion. Cholelithiasis. Anasarca. Cr 1.48 PHYSICAL EXAM: VITAL SIGNS: Reviewed. GENERAL: Well-developed in no acute distress. ABDOMEN: Soft. Nondistended. Incisional dressing clean dry and intact NEUROLOGIC: Alert and oriented. Cranial nerves II through XII grossly intact. ASSESSMENT: 1. Small bowel obstruction secondary to internal hernia status post exploratory laparotomy and small bowel resection 2. Incidental cholelithiasis noted on CT PLAN: -Patient can be discharged from surgical standpoint when medically cleared -Continue pain management -Continue regular diet -Increase activity level Physician Quality Assurance Nurse note has been reviewed by physician. Signing provider agrees with the documented findings, assessment, and plan of care. Objective - Vital Signs Vital signs: Vital Signs Temp 98.4 F 01/29/24 04:25 Pulse 73 01/29/24 04:25 Resp 16 01/29/24 04:25 BP 153/82 01/29/24 04:25 Pulse Ox 97 01/29/24 04:25 FiO2 Intake & Output 01/28/24 01/29/24 01/29/24 18:59 06:59 18:59 Intake Total 360 Balance 360 Weight 65.3 kg 64.5 kg Intake: Oral 360 Other: Voiding Method Toilet Toilet - Labs CBC & Chem 7: 01/28/24 08:57 01/29/24 08:11 Labs: Abnormal Lab Results - Last 24 Hours (Table) 01/29/24 Range/Units 08:11 Chloride 108 H (98-107) mmol/L Creatinine 1.48 H (0.52-1.04) mg/dL Magnesium 1.5 L (1.6-2.3) mg/dL
[2024-01-30] MEDS ORDERED: HEPARIN SODIUM,PORCINE 5,000 UNIT/ML 1 ML VIAL ONE (00:15)
[2024-01-30 06:11] LABS: Basophils % (A) 1 %; Eosinophils # (A) 0.5 k/uL (0-0.7); Eosinophils % (A) 6 %; HGB 10.4 gm/dL (11.4-16.0); Hypochromasia Slight; Lymphocytes # (A) 1.9 k/uL (1.0-4.8); Lymphocytes % (A) 23 %; MCH 31.8 pg (25.0-35.0); MCHC 32.5 g/dL (31.0-37.0); MCV 97.7 fL (80.0-100.0); Mean Platelet Volume 10.5; Monocytes # (A) 0.7 k/uL (0-1.0); Monocytes % (A) 8 %; Neutrophils # (A) 5.1 k/uL (1.3-7.7); Neutrophils % (A) 61 %; Platelet Count 236 k/uL (150-450); RBC 3.28 m/uL (3.80-5.40); RDW 13.9 % (11.5-15.5); WBC 8.3 k/uL (3.8-10.6)
[2024-01-30 07:57] LABS: African American GFR (CKD) 41 (>60 ml/min/1.73 sqM); Anion Gap 7 mmol/L; Blood Urea Nitrogen 16 mg/dL (7-17); Calcium 9.1 mg/dL (8.4-10.2); Carbon Dioxide 24 mmol/L (22-30); Chloride 110 mmol/L (98-107); Glucose 72 mg/dL (74-99); Magnesium 1.5 mg/dL (1.6-2.3); Non-African American GFR(CKD) 36 (>60 ml/min/1.73 sqM); Potassium 3.7 mmol/L (3.5-5.1); Sodium 141 mmol/L (137-145)
--- NOTE | 2024-01-30 11:29 | P.NPCON ---
History of Present Illness - Reason for Consult acute renal failure - History of Present Illness Reason for consultation: Acute kidney injury History of present illness: Patient is a 73-year-old female seen in renal consultation for acute kidney injury. Patient's creatinine dated January 26, 2024 was 0.72 and peaked at 1.48 this admission. It is fairly stable at 1.43 today. Patient came to the [facility] due to abdominal pain which started 1 day prior to admission. She was noted to have ischemic bowel and underwent small bowel resection this admission. She was also noted to have sinus pauses for which she is being followed by cardiology. Heart rate is now stable. Blood pressure stable. She is on room air. She is currently receiving IV fluids. She denies use of nonsteroidals. Denies history of diabetes or coronary artery disease. Denies family history of renal disease. She is noted to have mild right-sided hydronephrosis on CAT scan. Denies chest pain or shortness of breath. Tolerating oral intake. She does admit to pain in her lower extremities. She has been seen by vascular surgery. Vital signs are stable. General: No acute distress. HEENT: Head exam is unremarkable. On room air. LUNGS: No audible rhonchi or wheezes. HEART: Rate and Rhythm are regular. ABDOMEN: Nontender. EXTREMITITES: 1+ edema. No drainage. Tender to touch. Medications and Allergies Allergies Allergy/AdvReac Type Severity Reaction Status Date / Time No Known Allergies Allergy Verified 01/28/24 11:53 Physical Exam Vitals: Vital Signs Temp Pulse Resp BP Pulse Ox 01/30/24 05:11 98.0 F 67 16 160/83 95 01/29/24 20:16 97.4 F L 82 16 144/78 98 01/29/24 20:00 16 01/29/24 17:55 98.1 F 67 16 135/78 100 01/29/24 14:00 66 16 01/29/24 11:25 98.3 F 66 16 147/68 98 Intake and Output 01/29/24 01/30/24 01/30/24 22:59 06:59 14:59 Other: Voiding Method Toilet Weight 64.1 kg Results - Lab Results Most recent lab results Calcium 9.1 mg/dL (8.4-10.2) 01/30/24 05:17 Magnesium 1.5 mg/dL (1.6-2.3) L 01/30/24 05:17 01/30/24 05:17 01/30/24 05:17 Assessment and Plan Plan: Assessment: 1. Acute kidney injury secondary to ATN secondary to hemodynamic instability/bradycardia as well as sepsis. Creatinine stable at 1.43 today. Baseline creatinine 0.7. UA benign. 2. Mild right-sided hydronephrosis. Urology consulted. 3. 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 Surgery following. 4. Chronic venous stasis with right lower extremity ulcer. Seen by vascular surgery and wound care. On antibiotics. 5. Hypomagnesemia from poor intake. Being replaced. 6. Benign hypertension. 7. Second-degree heart block. Heart rate controlled. Plan: Decrease rate of LR to 70 cc an hour. Avoid nephrotoxins. Encourage oral intake. Magnesium being replaced. Continue to monitor renal function and urine output. Thank you for the consultation. I will continue to follow the patient with you during her hospital stay.
[2024-01-30] MEDS: MAGNESIUM SULFATE-D5W PMX 1 GM in DEXTROSE/WATER 1 100ML.BAG IVPB SCH (11:46)
--- NOTE | 2024-01-30 15:15 | P.PN ---
Subjective Progress Note Date: 01/30/24 Principal diagnosis: Hospital Course: 73-year-old female presented with ischemic bowel secondary to internal hernia status post exploratory laparotomy, small bowel resection, partial omentectomy. Currently bowel function is progressing. Patient has a new SANDOR Subjective: Patient seen at bedside. No acute events overnight. Patient states she still having some abdominal pain and pain in her legs. She denies headache, fevers, chills, nausea, vomiting, diarrhea. Pertinent positives and negatives discussed above, a complete review of systems was preformed and all the other systems were negative. Vitals Signs Reviewed. Patient is slightly hypertensive, hemodynamically stabl e, afebrile, satting well on room air. General: non toxic, no distress, appears at stated age, normal weight lying comfortably in bed Derm: no unusual rashes/lesions, warm Head: atraumatic, normocephalic, symmetric Eyes: EOMI, no lid lag, anicteric sclera, pupils equal round reactive to light ENT: Nose and ears atraumatic Neck: No cervical lymphadenopathy, trachea midline, supple Mouth: no lip lesion, mucus membranes moist Cardiovascular: S1S2 reg, no murmur, positive dorsalis pedis pulse bilateral, no edema Lungs: Decreased air entry bilaterally, no rhonchi, no rales, no accessory muscle use Abdominal: soft, nontender to palpation, no guarding Ext: muscle strength 5 out of 5 in all 4 extremities grossly, no gross muscle atrophy, no contractures, chronic venous stasis bilaterally with chronic ulcer in the right leg Neuro: CN II-XI grossly intact, no gross focal neuro deficits Psych: Alert, oriented, appropriate affect Data Reviewed Today: Patient Labs: WBCs 8.3, hemoglobin 10.4, MCV 97.7, platelets 236. Sodium 141, potassium 3.7, chloride 110, BUN 16, creatinine 1.43, glucose 72, calcium 9.1, magnesium 1.5. Imaging: No new imaging Assessment and Plan: Nonoliguric SANDOR Mild hydronephrosis in the right kidney -Renal ultrasound showed no obstruction -Will decrease fluids to LR at 70 cc/h as per nephro's recommendations -Measure I's and O's -Continue to monitor renal function with daily BMPs Urology consulted Ischemic bowel secondary internal hernia status post small bowel resection -Continue on regular diet -Oral Tylenol, IV Dilaudid for pain control , Monitor for sedation -Pantoprazole 40 oral daily Increase activity level Chronic venous stasis bilaterally with right lower extremity ulcer -No surrounding cellulitis at the moment -Was seen by vascular surgery and wound care -Continue wound care -Likely needs outpatient follow-up with wound care -Day 4 of IV ceftriaxone 2g every 24 hours Nicotine dependence -Nicotine patch 21 mg daily Sinus pauses, resolved Hypertension -Cardiology note reviewed, continue hydralazine 25 4 times daily, signed off -Added amlodipine 10mg -Continue telemetry monitoring Hypomagnesemia 2 g IV mag sulfate repleted Hypokalemia resolved F LR at 70cc/h E repleted as needed N regular diet A independently DVT ppx: Heparin 5000 units subcu every 8 hours Code Status: Full Anticipated discharge place: Home Anticipated discharge time: Pending clinical course Patient was seen and examined by me and the resident. I agree with the subjective and objective as above. We discussed the assessment and plan as documented below: She reports no complaints. CBC and BMP significant for RBC 3.28, Hg 10.4, Hct 32, Cl 110, Cr 1.43, glu 72. Mag 1.5. Nonoliguric SANDOR: Renal US without obstruction but mild R hydro on CT AP. Nephrology consulted, recommends LR at 75 cc/hr. Consult Urology. Hypomagnesemia: Mag sulfate 2g IV x 1. Ischemic bowel secondary internal hernia status post small bowel resection manag ed by Surgery Chronic venous stasis bilaterally with right lower extremity ulcer: Rocephin 2g IV QD. Wound care on board. Vascular surgery consulted. Nicotine dependence: Nicotine patch. Hypertension: Amlodipine 10 mg PO QD. Hydralazine 25 mg PO QID. Resolved: Sinus pause on telemetry. Objective - Vital Signs Vital signs: Vital Signs Temp 98.0 F 01/30/24 05:11 Pulse 67 01/30/24 05:11 Resp 16 01/30/24 05:11 BP 160/83 01/30/24 05:11 Pulse Ox 95 01/30/24 05:11 FiO2 Intake & Output 01/29/24 01/30/24 01/30/24 18:59 06:59 18:59 Intake Total 360 Balance 360 Weight 64.1 kg Intake: Oral 360 Other: Voiding Method Toilet Toilet - Labs CBC & Chem 7: 01/30/24 05:17 01/30/24 05:17 Labs: Abnormal Lab Results - Last 24 Hours (Table) 01/29/24 01/30/24 Range/Units 08:11 05:17 RBC 3.28 L (3.80-5.40) m/uL Hgb 10.4 L (11.4-16.0) gm/dL Hct 32.0 L (34.0-46.0) % Chloride 108 H (98-107) mmol/L Creatinine 1.48 H (0.52-1.04) mg/dL Magnesium 1.5 L (1.6-2.3) mg/dL
--- NOTE | 2024-01-30 15:26 | P.GSCN ---
History of Present Illness Consult date: 01/30/24 Reason for Consult: Right lower extremity wound. History of present illness: Patient is a 73-year-old female with longstanding history of chronic venous insufficiency who was admitted for small bowel obstruction for which she underwent surgical repair. She does have a wound of the right lower extremity which has been present for multiple years and has been treated and healed only to recur. Surgical consultation is requested in reference to this venous wound. Medications and Allergies Allergies Allergy/AdvReac Type Severity Reaction Status Date / Time No Known Allergies Allergy Verified 01/28/24 11:53 Surgical - Exam Osteopathic Statement: *. No significant issues noted on an osteopathic structural exam other than those noted in the History and Physical/Consult. Vital Signs Temp Pulse Resp BP Pulse Ox 97.9 F 64 14 164/85 95 01/26/24 03:29 01/26/24 03:29 01/26/24 03:01/26/24 03:01/26/24 03:29 Patient Seen Date: 01/30/24 Patient Seen Time: 12:10 Patient is awake, alert and in no apparent distress. Heart: Regular rate and rhythm. Lungs: Clear to auscultation bilaterally. Abdomen: Soft and slightly tender consistent with postoperative state. Surgical dressings are intact and left undisturbed. Femoral, popliteal and dorsalis pedis pulses are intact bilaterally. Stasis dermatitis and leg both amount of sclerotic changes are noted in the lower part of the right leg. Medially just above the malleolus there is a stage II wound measuring 3.5 x 1.5 cm in length and width and approximately 2 mm in depth. Excellent granulation tissue is noted. There is no evidence of undermining or tunneling. Results - Labs 01/30/24 05:17 01/30/24 05:17 Abnormal Lab Results - Last 24 Hours (Table) 01/30/24 01/30/24 Range/Units 05:17 05:17 RBC 3.28 L (3.80-5.40) m/uL Hgb 10.4 L (11.4-16.0) gm/dL Hct 32.0 L (34.0-46.0) % Chloride 110 H (98-107) mmol/L Creatinine 1.43 H (0.52-1.04) mg/dL Glucose 72 L (74-99) mg/dL Magnesium 1.5 L (1.6-2.3) mg/dL Diabetes panel 01/30/24 Range/Units 05:17 Sodium 141 (137-145) mmol/L Potassium 3.7 (3.5-5.1) mmol/L Chloride 110 H (98-107) mmol/L Carbon Dioxide 24 (22-30) mmol/L BUN 16 (7-17) mg/dL Creatinine 1.43 H (0.52-1.04) mg/dL Glucose 72 L (74-99) mg/dL Calcium 9.1 (8.4-10.2) mg/dL Calcium panel 01/30/24 Range/Units 05:17 Calcium 9.1 (8.4-10.2) mg/dL Pituitary panel 01/30/24 Range/Units 05:17 Sodium 141 (137-145) mmol/L Potassium 3.7 (3.5-5.1) mmol/L Chloride 110 H (98-107) mmol/L Carbon Dioxide 24 (22-30) mmol/L BUN 16 (7-17) mg/dL Creatinine 1.43 H (0.52-1.04) mg/dL Glucose 72 L (74-99) mg/dL Calcium 9.1 (8.4-10.2) mg/dL Adrenal panel 01/30/24 Range/Units 05:17 Sodium 141 (137-145) mmol/L Potassium 3.7 (3.5-5.1) mmol/L Chloride 110 H (98-107) mmol/L Carbon Dioxide 24 (22-30) mmol/L BUN 16 (7-17) mg/dL Creatinine 1.43 H (0.52-1.04) mg/dL Glucose 72 L (74-99) mg/dL Calcium 9.1 (8.4-10.2) mg/dL Assessment and Plan Assessment: Chronic venous insufficiency with secondary stasis dermatitis, lipo dermatosclerosis and venous wound right lower extremity. Chronic venous insufficiency with stasis dermatitis left lower extremity. Plan: 1: The wound was debrided at bedside of nonviable tissue revealing normal healthy skin. 2: Recommend Unna boot placement for compression with resulting decrease in venous hypertension allowing the wound to heal. This can be done on the outpatient basis 3: While in the hospital the patient's leg should be elevated when not ambulatory, eating or using the restroom. 4: From a vascular standpoint the patient may shower over her wounds. 5: Would like to see the patient in the office in follow-up care. Time with Patient: Greater than 30
--- NOTE | 2024-01-30 16:52 | P.PN ---
Subjective Progress Note Date: 01/30/24 CHIEF COMPLAINT: SBO HISTORY OF PRESENT ILLNESS: Patient reports pain is controlled. Just some incisional pain with movement. She is having bowel movements. Tolerating diet. Medicine service is working up for acute kidney injury. They ordered a CT scan abdomen and pelvis for evaluation of ureteral stricture screening. Did report mild right hydronephrosis no obstructing calculus identified. And a indeterminate subcentimeter right renal lesion. Cholelithiasis. Anasarca. Cr 1.43 PHYSICAL EXAM: VITAL SIGNS: Reviewed. GENERAL: Well-developed in no acute distress. ABDOMEN: Soft. Nondistended. Incisional dressing clean dry and intact NEUROLOGIC: Alert and oriented. Cranial nerves II through XII grossly intact. ASSESSMENT: 1. Small bowel obstruction secondary to internal hernia status post exploratory laparotomy and small bowel resection 2. Incidental cholelithiasis noted on CT PLAN: -Patient can be discharged from surgical standpoint when medically cleared -Continue pain management -Continue regular diet -Increase activity level -surgical service will sign off. Please call with any questions or concerns. Physician Service Line Bus Cleaner note has been reviewed by physician. Signing provider agrees with the documented findings, assessment, and plan of care. Objective - Vital Signs Vital signs: Vital Signs Temp 98.0 F 01/30/24 05:11 Pulse 67 01/30/24 05:11 Resp 16 01/30/24 05:11 BP 160/83 01/30/24 05:11 Pulse Ox 95 01/30/24 05:11 FiO2 Intake & Output 01/29/24 01/30/24 01/30/24 18:59 06:59 18:59 Intake Total 360 480 Balance 360 480 Weight 64.1 kg Intake: Oral 360 480 Other: Voiding Method Toilet Toilet - Labs CBC & Chem 7: 01/30/24 05:17 01/30/24 05:17 Labs: Abnormal Lab Results - Last 24 Hours (Table) 01/30/24 01/30/24 Range/Units 05:17 05:17 RBC 3.28 L (3.80-5.40) m/uL Hgb 10.4 L (11.4-16.0) gm/dL Hct 32.0 L (34.0-46.0) % Chloride 110 H (98-107) mmol/L Creatinine 1.43 H (0.52-1.04) mg/dL Glucose 72 L (74-99) mg/dL Magnesium 1.5 L (1.6-2.3) mg/dL
--- NOTE | 2024-01-30 20:10 | P.GSCN ---
History of Present Illness Consult date: 01/30/24 Reason for Consult: Right hydronephrosis, right renal lesion Requesting physician: Rufino Salas History of present illness: The patient is a 73-year-old white female admitted with a bowel obstruction secondary to an internal hernia. She was found to have ischemic bowel and underwent small bowel resection. She is now recovering from surgery. A CT scan performed yesterday showed evidence of mild right hydronephrosis, as well as a subcentimeter right renal lesion. Ultrasound also showed evidence of mild right hydronephrosis. I am consulted for this reason. The patient has an unremarkable urologic history. Specifically, she denies any prior history of UTIs or urolithiasis. Review of Systems - Genitourinary Genitourinary: Denies dysuria, Denies flank pain, Denies hematuria Medications and Allergies Allergies Allergy/AdvReac Type Severity Reaction Status Date / Time No Known Allergies Allergy Verified 01/28/24 11:53 Surgical - Exam Vital Signs Temp Pulse Resp BP Pulse Ox 97.9 F 64 14 164/85 95 01/26/24 03:29 01/26/24 03:29 01/26/24 03:29 01/26/24 03:29 01/26/24 03:29 - General well developed, well nourished, no distress - Respiratory normal respiratory effort - Abdomen Soft, non-distended. Dressing dry and intact. - Psychiatric oriented to time, oriented to person, oriented to place, speech is normal, me arthur intact Results - Labs 01/30/24 05:17 01/30/24 05:17 Abnormal Lab Results - Last 24 Hours (Table) 01/29/24 Range/Units 08:11 Chloride 108 H (98-107) mmol/L Creatinine 1.48 H (0.52-1.04) mg/dL Magnesium 1.5 L (1.6-2.3) mg/dL Diabetes panel 01/29/24 Range/Units 08:11 Sodium 139 (137-145) mmol/L Potassium 3.7 (3.5-5.1) mmol/L Chloride 108 H (98-107) mmol/L Carbon Dioxide 25 (22-30) mmol/L BUN 16 (7-17) mg/dL Creatinine 1.48 H (0.52-1.04) mg/dL Glucose 82 (74-99) mg/dL Calcium 9.3 (8.4-10.2) mg/dL Calcium panel 01/29/24 Range/Units 08:11 Calcium 9.3 (8.4-10.2) mg/dL Pituitary panel 01/29/24 Range/Units 08:11 Sodium 139 (137-145) mmol/L Potassium 3.7 (3.5-5.1) mmol/L Chloride 108 H (98-107) mmol/L Carbon Dioxide 25 (22-30) mmol/L BUN 16 (7-17) mg/dL Creatinine 1.48 H (0.52-1.04) mg/dL Glucose 82 (74-99) mg/dL Calcium 9.3 (8.4-10.2) mg/dL Adrenal panel 01/29/24 Range/Units 08:11 Sodium 139 (137-145) mmol/L Potassium 3.7 (3.5-5.1) mmol/L Chloride 108 H (98-107) mmol/L Carbon Dioxide 25 (22-30) mmol/L BUN 16 (7-17) mg/dL Creatinine 1.48 H (0.52-1.04) mg/dL Glucose 82 (74-99) mg/dL Calcium 9.3 (8.4-10.2) mg/dL - Imaging CT scan - abdomen: report reviewed, image reviewed Assessment and Plan (1) Unspecified hydronephrosis Current Visit: Yes Status: Acute Code(s): N13.30 - UNSPECIFIED HYDRONEPHROSIS SNOMED Code(s): 64980170 Plan: I had a lengthy discussion with the patient regarding the incidentally detected mild right hydronephrosis. I explained to her that this may be obstructive in nature, and can compromise renal function. The CT scan showed no evidence of a ureteral calculus. We discussed the differential diagnosis of hydronephrosis, and the fact that she is asymptomatic regarding this. She does not wish to undergo formal evaluation at this time. Rather, arrangements will be made for her to follow-up with me in the office in approximately 6 weeks. The renal ultrasound will be repeated prior to that appointment. Lana allow me to evaluate Ms. Gan. Please notify me if I can be of any further assistance. Time with Patient: Greater than 30
--- NOTE | 2024-01-31 10:23 | P.PN ---
Subjective Patient is seen in follow-up for acute kidney injury. Renal function stable. Has been voiding. Denies chest pain or shortness of breath. No active complaints. Vital signs are stable. General: No acute distress. HEENT: Head exam is unremarkable. LUNGS: No audible rhonchi or wheezes. HEART: Rate and Rhythm are regular. ABDOMEN: Nontender. EXTREMITITES: 1+ edema lower extremities. Objective - Vital Signs Vital signs: Vital Signs Temp 97.4 F L 01/31/24 04:31 Pulse 83 01/31/24 04:31 Resp 17 01/31/24 04:31 BP 131/76 01/31/24 04:31 Pulse Ox 96 01/31/24 04:31 FiO2 Intake & Output 01/30/24 01/31/24 01/31/24 18:59 06:59 18:59 Intake Total 480 894 Balance 480 894 Weight 62.1 kg Intake: Oral 480 894 Other: Voiding Method Toilet Toilet - Labs CBC & Chem 7: 01/30/24 05:17 01/30/24 05:17 Assessment and Plan Plan: Assessment: 1. Acute kidney injury secondary to ATN secondary to hemodynamic instability/bradycardia as well as sepsis. Creatinine stable at 1.43 as of yesterday. Baseline creatinine 0.7. UA benign. 2. Mild right-sided hydronephrosis. Seen by urology. No plans for intervention at this time. 3. 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 Surgery following. 4. Chronic venous stasis with right lower extremity ulcer. Seen by vascular surgery and wound care. On antibiotics. 5. Hypomagnesemia from poor intake. Being replaced. 6. Benign hypertension. Stable. 7. Second-degree heart block. Heart rate controlled. Plan: Hep-Lock IV fluids. Avoid nephrotoxins. Encourage oral intake. Continue to monitor renal function and urine output. Potential discharge today. Follow-up outpatient 1 week postdischarge.
[2024-01-31 10:35] LABS: African American GFR (CKD) 47 (>60 ml/min/1.73 sqM); Anion Gap 5 mmol/L; Blood Urea Nitrogen 13 mg/dL (7-17); Calcium 9.1 mg/dL (8.4-10.2); Carbon Dioxide 30 mmol/L (22-30); Chloride 104 mmol/L (98-107); Glucose 88 mg/dL (74-99); Magnesium 1.8 mg/dL (1.6-2.3); Non-African American GFR(CKD) 40 (>60 ml/min/1.73 sqM); Potassium 3.3 mmol/L (3.5-5.1); Sodium 139 mmol/L (137-145)
[2024-01-31 12:28] VITALS: BP 143/74; PULSE 71; TEMP 97.9
[2024-01-31] MEDS: POTASSIUM CHLORIDE ER 20 MEQ TAB.ER PO STA (13:52)
[2024-01-31 14:13] VITALS: RESP 18
--- NOTE | 2024-01-31 15:26 | P.DS ---
Providers Date of admission: 01/21/24 20:35 Discharge Diagnosis: Ischemic bowel secondary to internal hernia status post exploratory laparotomy, small bowel resection, partial omentectomy Nonoliguric SANDOR Hydronephrosis of right kidney Chronic venous stasis bilateral lower extremities Chronic right lower extremity ulcer Hypertension Nicotine dependence Sinus pauses Hypokalemia Hospital Course: 73-year-old female who presented to the ER on 01/20 with abdominal pain and nausea as well as chronic wound in the right leg. Initial labs were significant for CRP 1.4, creatinine 2.18, lactate (3, 1.7, 1.8), WBCs were 21.84. UA was unremarkable. Patient's abdomen was tender to palpation on physical exam. Abdominal ultrasound showed questionable ascites and GI was consulted for possible paracentesis. CT abdomen pelvis showed small bowel thickening and SBO. Surgery was consulted and NG tube was placed for decompression. On 01/21 patient was taken for exploratory laparotomy, small bowel resection, and partial omentectomy. Vascular surgery was consulted for chronic leg wound. Wound care was also following throughout hospital stay. Postsurgically patient developed acute kidney injury and nephrology was consulted. Patient had 3 to 5-second sinus pauses on telemetry so cardiology was consulted. Patient's clinical status has improved and she is stable for discharge. Case was discussed with case management extensively and will be discharged home with home health services. She was provided literature for a heart healthy diet, bowel obstruction, exploratory laparotomy. Patient is to follow-up with cardiology in 1 week. Patient has to follow-up with urology in 6 weeks with repeat renal ultrasound if possible. Patient will follow-up with PCP in 1 week. Patient will follow-up with vascular surgery in 1 week. Patient will follow-up with general surgery in 1 week. Pt seen and examined at bedside: She denies any complaints at this time and is excited for discharge Vital signs reviewed and stable. General: non toxic, no distress, appears at stated age, normal weight Cardiovascular: S1S2 reg, no murmur, positive dorsalis pedis pulse bilateral, no edema Lungs: Decreased air entry bilaterally, no rhonchi, no rales, no accessory muscle use Abdominal: soft, nontender to palpation, no guarding Psych: Alert, oriented, appropriate affect EXT: Chronic venous stasis bilaterally in lower extremities with ulcer above right malleolus A total of 30 minutes were spent preparing this complex discharge summary. Patient was discharged on January 31, 2024 at 1413. Attending physician: Xiang Rodriguez MD Consults: 01/21/24 03:00 Consult Physician Routine Consulting Provider: Diana Ceballos Consult Reason/Comments: gangren RLE Do you want consulting provider notified?: Already Contacted Consult Physician Routine Consulting Provider: Muriel Yao Consult Reason/Comments: GI bleed Do you want consulting provider notified?: Already Contacted 01/23/24 18:37 Consult Physician Routine Consulting Provider: Stanley Turner Consult Reason/Comments: Med manage Do you want consulting provider notified?: Already Contacted 01/24/24 18:37 Consult Physician Routine Consulting Provider: Alistair Meeks Consult Reason/Comments: sinus pause Do you want consulting provider notified?: Already Contacted 01/29/24 13:22 Consult Physician Routine Consulting Provider: Joni Lazar Consult Reason/Comments: Right hydronephrosis, lesion, with worsening SANDOR Do you want consulting provider notified?: Yes 01/30/24 10:05 Consult Physician Routine Consulting Provider: Darwin Pino Consult Reason/Comments: new onset SANDOR without improvement Do you want consulting provider notified?: Yes Primary care physician: Stated None Hospital Course: Patient was seen and examined by me and the resident. I agree with the subjective and objective as above. We discussed the assessment and plan as documented below: She reports no complaints. BMP significant for K 3.3, Cr 1.3. Mag 1.8. Plans for discharge home today. Urology will follow the patient in the outpatient setting. Follow up with PCP within 1 week for repeat lab work to evaluate renal function (stressed the importance of this to the patient). Follow up with Cardiology within 1 week, Dr. Anderson within 1 week and Vascular Surgery within 1 week. Discharge Diagnosis: Nonoliguric SANDOR Hypomagnesemia Ischemic bowel secondary internal hernia status post small bowel resection managed by Surgery Chronic venous stasis bilaterally with right lower extremity ulcer Nicotine dependence Hypertension Resolved: Sinus pause on telemetry Patient Condition at Discharge: Stable Plan - Discharge Summary Discharge Rx Participant: Yes New Discharge Prescriptions: New amLODIPine [Norvasc] 10 mg PO DAILY #30 tab hydrALAZINE HCL [Apresoline] 25 mg PO QID #120 tab Pantoprazole [Protonix] 40 mg PO AC-BRKFST #30 tab Discharge Medication List Pantoprazole [Protonix] 40 mg PO AC-BRKFST #30 tab 01/31/24 [Rx] amLODIPine [Norvasc] 10 mg PO DAILY #30 tab 01/31/24 [Rx] hydrALAZINE HCL [Apresoline] 25 mg PO QID #120 tab 01/31/24 [Rx] Follow up Appointment(s)/Referral(s): Alistair Meeks MD [Medical Doctor] - 1 Week Sumanth Riley MD [STAFF PHYSICIAN] - 6 Weeks () Orlin Ramires MD [STAFF PHYSICIAN] - 1 Week Dragan Augustine DO [Doctor of Osteopathic Medicine] - 1 Week Jann Anderson MD [STAFF PHYSICIAN] - 1 Week Patient Instructions/Handouts: Heart Healthy Diet (DC), Bowel Obstruction (DC), Exploratory Laparotomy (DC) Activity/Diet/Wound Care/Special Instructions: Patient will be contacted by Dr. Riley' office to arrange follow-up. Discharge/Stand Alone Forms: Who Do I Call?, Personal Commercial Front Load Driver, Area PCPs Discharge Disposition: HOME WITH HOME HEALTH SERVICES
--- NOTE | 2024-02-11 11:33 | CT ---
Patient: Kathy Gan Ordering Physician: Unknown, Unknown ID: [id number] Phone, Pager: Phone: N /A Pager: N/A : 1950 Age/Gender: 73Y, F Primary Location: N/A Procedure: A/P WO Study Date: 7:35:19 PM EXAMINATION TYPE: CT abdomen pelvis wo con CT DLP: 397 mGycm, Automated exposure control for dose reduction was used. DATE OF EXAM: 01/21/2024 9:22 PM COMPARISON: CT abdomen pelvis most recent from 01/20/2024 CLINICAL INDICATION: Abdominal pain. Distention. TECHNIQUE: Axial CT abdomen pelvis wo con;Sagittal and coronal reformats were created on a separate workstation. Contrast used: mL of , (none if empty) Oral contrast used: Oral contrast utilized. FINDINGS: LOWER CHEST: Trace right pleural effusion. ABDOMEN LIVER: Nodular contour to liver. GALLBLADDER AND BILE DUCTS: Oral contrast is seen extending into the gallbladder lumen. PANCREAS: Unremarkable. SPLEEN: Unremarkable. ADRENAL GLANDS: Unremarkable. KIDNEYS AND URETERS: Striated nephrograms bilaterally. No evidence of hydronephrosis or renal calculu s. The ureters are unremarkable. Striated nephrograms bilaterally. PELVIS BLADDER: Unremarkable REPRODUCTIVE: Unremarkable. ABDOMEN & PELVIS STOMACH AND BOWEL: Again there is evidence for internal hernia with evidence of strangulation of the bowel with edema with the mesentery of the loop of bowel in the right abdomen. Wall thickening within these vertebral bowels also thought to be present however poorly visualized due to lack of contrast within this loop of bowel bowel brito measuring at least 5 mm. Neck seen on series 202 image 24 simil ar prior. Left with additional outpouching of bowel on series 202 image 30 upper quadrant and left ab domen dilated loops of small bowel. Contrast extends into the left upper quadrant and gastric lumen. PERITONEUM/RETROPERITONEUM: No evidence of pneumoperitoneum small amount of free fluid in the abdomen with 27 Hounsfield units intensity. VASCULATURE: No evidence of aortic aneurysm. MUSCULOSKELETAL: No acute osseous abnormalities. Moderate disc degeneration changes are present throu ghout the thoracolumbar spine. LYMPH NODES: No gross evidence for lymphadenopathy. SOFT TISSUE/ABDOMINAL WALL: Unremarkable IMPRESSION: 1. Redemonstration of findings suggesting internal hernia with small bowel obstruction and possible closed loop obstruction. There is mesenteric edema within this loop of bowel concerning for strangula tion. 2. Striated nephrograms bilaterally correlate for pyelonephritis/ascending infection. Correlate with urinalysis. 3. Higher density than simple fluid free fluid throughout the abdomen unclear if there is component of pernicious contents. 4. Oral contrast is seen extending into the gallbladder lumen Nodular contour to liver correlate for cirrhosis. Findings communicated to Dr. Anderson on 01/21/2024 9:[address] Enrico Rangel.
--- NOTE | 2024-02-25 20:42 | CT ---
EXAM: CT Abdomen and Pelvis With Intravenous Contrast CLINICAL HISTORY: Abd pain all over since 8am TECHNIQUE: Axial computed tomography images of the abdomen and pelvis with intravenous contrast. CTDI is 13.2 mGy and DLP is 582.7 mGy-cm. This CT exam was performed using one or more of the following dose reduction techniques: automated exposure control, adjustment of the mA and/or kV according to patient size, and/or use of iterative reconstruction technique. COMPARISON: No relevant prior studies available. FINDINGS: Lung bases:Unremarkable. No mass. No consolidation. ABDOMEN: Liver:Unremarkable. No mass. Gallbladder and bile ducts:Unremarkable. No calcified stones. No ductal dilation. Pancreas:Unremarkable. No mass. No ductal dilation. Spleen:Unremarkable. No splenomegaly. Adrenals:Unremarkable. No mass. Kidneys and ureters:Bilateral renal cortical cysts. No hydronephrosis. Stomach and bowel: Mild wall thickening of small bowel, correlate for spontaneous bacteria peritonitis. No small bowel obstruction. No free air. PELVIS: Appendix:No findings to suggest acute appendicitis. Bladder:Unremarkable. No mass. Reproductive:Unremarkable as visualized. ABDOMEN and PELVIS: Intraperitoneal space: Moderate abdominal ascites. Bones/joints:Degenerative changes of the spine. No acute fracture. No dislocation. Soft tissues:Unremarkable. Vasculature:Atherosclerotic changes of the aorta. No abdominal aortic aneurysm. Lymph nodes:Unremarkable. No enlarged lymph nodes. IMPRESSION: 1. No small bowel obstruction. No free air. 2. Moderate abdominal ascites. 3. Mild wall thickening of small bowel, correlate for spontaneous bacteria peritonitis. Radiologist: London Roach MD Electronically Signed: 01/21/24 01:33 Study ready at 23:48 and initial results transmitted at 01:33 Results also transmitted to Film Room, Film Room @ [phone] (Fax) [facility]
--- NOTE | 2024-03-02 13:30 | XR ---
Patient: Kathy Gan Ordering Physician: Unknown, Unknown ID: [id number] Phone, Pager: Phone: N /A Pager: N/A : 1950 Age/Gender: 73Y, F Primary Location: N/A Procedure: 1v abd Study Date: 6:35:00 PM EXAMINATION TYPE: XR abdomen 1V DATE OF EXAM: 01/21/2024 7:04 PM CLINICAL INDICATION: NG tube placement COMPARISON: 01/20/2024 TECHNIQUE: One radiographic view of the abdomen was obtained. FINDINGS: Nasogastric tube projects over the upper abdomen dilated loops of bowel are seen throughout the abdomen measuring up to 3.6 cm.. The osseous structures are intact. No abnormal calcifications are present. IMPRESSION: 1. Nasogastric tube in appropriate position. 2. Findings on prior CT are concerning for closed loop obstruction possibly secondary to internal he rnia. Findings communicated to Dr. Anderson on 01/21/2024 7:[address] Enrico Rangel.
--- NOTE | 2024-03-04 14:25 | PN ---
PROGRESS NOTE DATE OF SERVICE: 01/24/2024 SUBJECTIVE: The patient has had minimal output through NG tube. She thinks she may have had some small flatus. OBJECTIVE: VITAL SIGNS: Stable. ABDOMEN: Soft. Incision is clean, dry, intact. ASSESSMENT AND PLAN: Status post small bowel resection for internal hernia with ischemic bowel. The patient is progressing. We will start her on clear liquid diet once her bowel function returns. MMODL / IJN: [id number] /
--- NOTE | 2024-03-04 14:25 | CONS ---
CONSULTATION REASON FOR CONSULTATION: Leukocytosis, right lower extremity wound cellulitis. HISTORY OF PRESENT ILLNESS: The patient is a 73-year-old female with past medical history significant for chronic nonhealing wound to the right lower extremity the patient has for a couple of years now and the patient has been taking care of it herself. The patient presented to the hospital with shock, abdominal pain mostly in the upper abdominal area that has been going on for the last 2 to 3 days. Described the pain to be sharp, moderate in intensity. Has been nauseated, but no vomiting. Did not have any bowel movement. The patient denies any fever or any chills. She did have a nonhealing wound to the right lower extremity, which has been draining at times and has been complaining of more swelling associated with it and occasional drainage. Did have worsening of the swelling, especially when she walks on it, and described the pain to the leg to be mostly dull aching to sharp, moderate in intensity. The patient has been evaluated, noticed to have fever, elevated white count, started on Rocephin and vancomycin. Infectious Disease was consulted for further management of antibiotic therapy. REVIEW OF SYSTEMS: Positive points have been mentioned in HPI. Rest of the systems are negative. PAST MEDICAL HISTORY: Reviewed. PAST SURGICAL HISTORY: Reviewed. SOCIAL HISTORY: About 69-mdwq-saxr smoking and history of drinking. No drug use. FAMILY HISTORY: Father with history of hypertension and coronary artery disease. Brother with history of prostate cancer. ALLERGIES: Penicillin and egg whites. MEDICATIONS: Currently, the patient is on, 1. Rocephin 2 g daily. 2. . 3. Nicotine patch. 4. Heparin. 5. Protonix. 6. Vancomycin, pharmacy to dose. 7. Hydromorphone. 8. Zofran. 9. Clonidine. 10.Tylenol. PHYSICAL EXAMINATION: VITAL SIGNS: Blood pressure 105/88, pulse of 90, temperature 98.1 and did have a temperature of 102 degrees Fahrenheit on presentation to the hospital. GENERAL DESCRIPTION: This is an elderly female, lying in bed in no distress. No tachypnea or accessory muscle of respiration use. HEENT: Shows slight pallor. No scleral icterus. Oral mucous membrane is moist. NECK: Trachea central. No thyromegaly. LUNGS: Unlabored breathing. Clear to auscultation. HEART: S1, S2. Regular rate and rhythm. ABDOMEN: Distended. No guarding. No rigidity. No organomegaly. EXTREMITIES: Right lower extremity with chronic venous stasis ulcer with dry scaly skin noted. Minimal erythema, minimal foul smelling. NEUROLOGIC: The patient is awake, alert, oriented. Mood and affect normal. LABORATORY DATA: The patient did have a CT of abdomen and pelvis, did show moderate ascites without free fluid, bowel wall edema, no obstruction. Hemoglobin is 17.80 with left shift. Lactic acid 1.8. BUN of 21, creatinine is 2.18. Urine has been positive. DIAGNOSTIC IMPRESSION/PLAN: 1. Patient presented to the hospital with abdominal pain, sharp in this patient who did have abnormal CT with evidence of fluid concerning for possible spontaneous bacterial peritonitis with evidence of ascites and history of . 2. Patient with chronic and nonhealing wound to the right lower extremity likely venous stasis ulcer with cellulitis likely cover for gram-negative as well as gram- positive pathogen culture. 3. Malnutrition . 4. The patient to continue Rocephin 2 g daily and vancomycin while waiting for the culture to finalize. However, need to monitor her kidney function closely. 5. We will follow on clinical condition and culture to further adjust medication if needed. Thank you for this consultation. We will follow the patient along with you. MMODL / IJN: [id number] /
--- NOTE | 2024-03-04 14:25 | OP ---
OPERATIVE REPORT DATE OF SERVICE : 01/22/2024 PROCEDURES PERFORMED: 1. Exploratory laparotomy. 2. Small bowel resection. 3. Partial omentectomy. PREOPERATIVE DIAGNOSIS: Internal hernia. POSTOPERATIVE DIAGNOSES: Internal hernia with ischemic small bowel. ANESTHESIA: General endotracheal tube anesthesia. DESCRIPTION OF PROCEDURE: The patient was placed on the operative table in the supine position. She received general anesthesia. Her abdomen was prepped and draped in usual sterile fashion. The abdomen was entered through a midline incision. Upon entering the abdomen, there was some florian colored ascites. This was aspirated. In the right lower quadrant, there was an internal hernia where the bowel had herniated through the omentum creating a closed loop obstruction. The bowel was ischemic. The bowel was reduced through the omentum. The omentum was transected with the EnSeal device and sent to pathology. The small bowel was then transected with a YEHUDA stapler proximally and distally and then using the Enseal device the mesentery of the bowel was divided. A imel-[id number] functional end-to-end staple anastomosis was then created with the YEHUDA stapler and the TA stapler in a [id number] functional and end-to-end anastomosis. The window in the mesentery was closed with 3-0 GI silk suture. The 3-0 GI silk suture was used to cross- stitch as well. The abdomen was irrigated, there was no bleeding seen. The fascia was closed with looped #1 PDS suture. Skin was closed with amanda. The patient tolerated the procedure well. She was sent to recovery room in stable condition. MMODL / IJN: [id number] /
== END 2024-01-31 14:56 | disposition home health service (06) | DRG 853 ==
LOC: 3SCARD 20:35
PROVIDERS: ADMIT Internal Medicine; ATTEND Internal Medicine
PROC: 0DBU0ZZ Excision of Omentum, Open Approach (ICD-10-PCS; 2024-01-22)
PROC: 0DB80ZZ Excision of Small Intestine, Open Approach (ICD-10-PCS; principal; 2024-01-22 13:00)
PROC: 0HDKXZZ Extraction of Right Lower Leg Skin, External Approach (ICD-10-PCS; 2024-01-30)
DX: A41.9 Sepsis, unspecified organism (principal); N17.0 Acute kidney failure with tubular necrosis; K46.0 Unspecified abdominal hernia with obstruction, without gangrene; N13.30 Unspecified hydronephrosis; K55.9 Vascular disorder of intestine, unspecified; L97.919 Non-pressure chronic ulcer of unspecified part of right lower leg with unspecified severity; I10 Essential (primary) hypertension; E83.42 Hypomagnesemia; E87.6 Hypokalemia; I44.1 Atrioventricular block, second degree; I87.8 Other specified disorders of veins; I87.2 Venous insufficiency (chronic) (peripheral); R00.1 Bradycardia, unspecified; R65.20 Severe sepsis without septic shock; K80.20 Calculus of gallbladder without cholecystitis without obstruction; F17.210 Nicotine dependence, cigarettes, uncomplicated; Z79.899 Other long term (current) drug therapy
CPT/HCPCS: 74018; 74176; 74177; 76770; 80048; 80053; 80074; 81003; 82570; 83735; 84300; 85025; 85652; 88307; 96361; 96374; 96375; 99291

== ENCOUNTER → 2024-03-09 | Outpatient (CLI) | payer MEDICARE ==
--- NOTE | 2024-03-09 12:04 | US ---
EXAMINATION TYPE: US kidneys/renal and bladder DATE OF EXAM: 03/09/2024 COMPARISON: 01/27/2024 CLINICAL INDICATION: Female, 73 years old with history of N13.30 UNSPECIFIED HYDRONEPHROSIS; mild hyd ronephrosis seen 2 months ago, no symptoms now TECHNIQUE: Grayscale and color Doppler imaging of the bilateral kidneys and urinary bladder: FINDINGS: EXAM MEASUREMENTS: Right Kidney: 9.9 x 3.9 x 4.3 cm Left Kidney: 8.6 x 3.7 x 4.7 cm Right Kidney: mild hydronephrosis versus prominent renal pelvis Left Kidney: No hydronephrosis or masses seen Bladder: wnl Renal cortical thickness and echogenicity maintained. No nephrolithiasis. IMPRESSION: 1. Mild right hydronephrosis stable from prior exam. [facility], , 03/09/2024 12:01 PM
== END | disposition home or self-care (01) ==
LOC: RADUSWWP 11:07
PROVIDERS: ATTEND Urology
DX: N13.30 Unspecified hydronephrosis (principal)
CPT/HCPCS: 76770